=== PATIENT | male | born 1960 | race Caucasian/White ===

== ENCOUNTER 2016-10-07 15:29 | Emergency (ER) | payer OTHER ==
[~2016-10-07 15:29] MED LIST: Lidocaine 1% 20 ML MDV INFILT ONE
--- NOTE | 2016-10-07 17:16 | EDM.PDOC ---
ED HPI GENERAL MEDICAL PROBLEM - General Chief Complaint: Laceration Stated Complaint: LT FINGER INJURY Time Seen by Provider: 10/07/16 15:55 Source of Information: Reports: Patient, Family History Limitations: Reports: No Limitations - History of Present Illness INITIAL COMMENTS - FREE TEXT/NARRATIVE: Patient was cutting a nail off a board with a reciprocating saw at 15:15. The saw kicked back and cut the side of his left index finger. He has no loss of sensation or function with good strength and full ROM. It cut into the fatty layer of his finger. He has no other complaints and no fever or chills. He had his last tetanus shot 4 years ago. Onset: Today Onset Date: 10/07/16 Onset Time: 15:30 Duration: Hour(s): (2) Location: Reports: Upper Extremity, Left (Lateral left index finger laceration 2.5 cm.) Quality: Reports: Sharp Severity: Mild Improves with: Reports: None Worsens with: Reports: None Associated Symptoms: Reports: No Other Symptoms Left 2-Index finger Pain Score (Numeric/FACES): 5 - Related Data Allergies Allergy/AdvReac Type Severity Reaction Status Date / Time No Known Allergies Allergy Verified 10/07/16 15:48 Home Meds: Home Meds Cephalexin 500 mg PO BID #20 capsule 10/07/16 [Rx] Levothyroxine 200 mcg PO ACBREAKFAST 10/07/16 [History] Past Medical History - Past Health History Medical/Surgical History: Denies Medical/Surgical History Social & Family History - Tobacco Use Smoking Status *Q: Never Smoker - Caffeine Use Caffeine Use: Reports: Coffee - Recreational Drug Use Recreational Drug Use: No ED ROS GENERAL - Review of Systems Review Of Systems: See Below Constitutional: Reports: No Symptoms HEENT: Reports: No Symptoms Respiratory: Reports: No Symptoms Cardiovascular: Reports: No Symptoms Endocrine: Reports: No Symptoms GI/Abdominal: Reports: No Symptoms : Reports: No Symptoms Musculoskeletal: Reports: Hand Pain (Laceration 2.5 cm left index finger.) Skin: Reports: Wound (Left index finger.) Neurological: Reports: No Symptoms Psychiatric: Reports: No Symptoms Hematologic/Lymphatic: Reports: No Symptoms Immunologic: Reports: No Symptoms ED EXAM, SKIN/RASH Exam: See Below Exam Limited By: No Limitations General Appearance: Alert Eye Exam: Bilateral Eye: EOMI, Normal Fundi, Normal Inspection, PERRL Ears: Normal External Exam Nose: Normal Inspection, Normal Mucosa, No Blood Throat/Mouth: Normal Inspection, Normal Lips, Normal Teeth, Normal Gums, Normal Oropharynx, Normal Voice, No Airway Compromise Head: Atraumatic, Normocephalic Neck: Normal Inspection, Supple, Non-Tender, Full Range of Motion Respiratory/Chest: No Respiratory Distress, Lungs Clear, Normal Breath Sounds, No Accessory Muscle Use, Chest Non-Tender Cardiovascular: Normal Peripheral Pulses, Regular Rate, Rhythm, No Edema, No Gallop, No JVD, No Murmur, No Rub Peripheral Pulses: 4+: Radial (L), Radial (R) GI/Abdominal: Soft, Non-Tender, No Organomegaly Extremities: Other (2.5 cm laceration into the fatty layer of the skin of the left lateral index finger.) Neurological: Alert, Oriented, CN II-XII Intact, Normal Cognition, Normal Gait, Normal Reflexes, No Motor/Sensory Deficits Psychiatric: Normal Affect, Normal Mood Skin: Wound/Incision (2.5 cm laceration in left lateral index finger in the fatty layer. No tendon involvement and normal sensation and strength left index finger.) Location, Skin: Upper Extremity, Left (2.5 cm laceration left index finger as described above.) Lymphatic: No Adenopathy ED SKIN PROCEDURES - Laceration/Wound Repair Left Lateral Distal Finger Lac/Wound length In cm: 2.5 Appearance: Subcutaneous Distal NVT: Neuro & Vascular Intact Anesthetic Type: Local Local Anesthesia - Lidocaine (Xylocaine): 1% Plain Local Anesthetic Volume: 3cc Skin Prep: Providone-Iodine (Betadine), Saline, Sterile Drape Exploration/Debridement/Repair: Wound Explored, In a Bloodless Field, Explored to Base, No Foreign Material Found, Other (No tendon involvement.) Closed with: Sutures Suture Size: 3-0 # of Sutures: 7 Suture Type: Nylon Course - Vital Signs Text/Narrative:: Uneventful ED course. After his sutures were done, it was dressed with antibiotic ointment and sterile gauze. Cephalexin 500 mg orally two times daily for 10 days. Wound care discussed with patient. He will return if any complications arise and will see his PCP in 9 days to get the sutures removed. Last Recorded V/S: Last Vital Signs Temp 36.6 C 10/07/16 15:53 Pulse 63 10/07/16 15:53 Resp 18 10/07/16 15:53 BP 136/94 H 10/07/16 15:53 Pulse Ox 96 10/07/16 15:53 - Orders/Labs/Meds Orders: Active Orders 24 hr Category Date Time Status Fingers Second Digit Lt F1 [CR] Stat Exams 10/07/16 15:51 Taken Departure - Departure Time of Disposition: 17:31 Disposition: Home, Self-Care 01 Condition: Good Clinical Impression: Laceration of finger of left hand - Discharge Information Instructions: Laceration Care, Adult, [id number], Stitches, Lisa, or Adhesive Wound Closure, [id number] Forms: ED Department Discharge - My Orders Last 24 Hours: My Active Orders 10/07/16 15:51 Fingers Second Digit Lt F1 [CR] Stat - Assessment/Plan Last 24 Hours: My Active Orders 10/07/16 15:51 Fingers Second Digit Lt F1 [CR] Stat
[2016-10-07 17:44] VITALS: BP 130/65
--- NOTE | 2016-10-09 14:51 | CR ---
INDICATION: Cut left index finger with a reciprocating saw. LEFT INDEX FINGER: Three views of the left index finger revealed irregularity at the ungual tuft, likely on the basis of a previous fracture in that area. A definite acute fracture or dislocation was not identified. MTDD
== END 2016-10-07 17:40 | disposition home or self-care (01) ==
LOC: FB.ED 15:29
DX: S61.211A Laceration without foreign body of left index finger without damage to nail, initial encounter (principal); W27.0XXA Contact with workbench tool, initial encounter
CPT/HCPCS: 12001; 73140; 99283; A4217; 12002